=== PATIENT | female | born 1990 | race Caucasian/White ===

== ENCOUNTER 2018-03-26 21:53 | Observation (INO) | payer OTHER ==
[2018-03-26] MEDS ORDERED: Ketorolac INJ* 30 MG/ML 1 ML VIAL IV PUSH ONE (22:35)
[2018-03-26 22:39] LABS: ABS Basophils 0.1 10^3/ul (0-0.2); ABS Eosinophils 0.1 10^3/ul (0-0.6); ABS Lymphocytes 2.6 10^3/ul (1.0-4.8); ABS Monocytes 0.8 10^3/ul (0-0.8); ABS Neutrophils 7.6 10^3/ul (1.5-7.7); ABS Nucleated RBC 0 10^3/ul; Eosinophil % 0.6 % (0-6); Hematocrit 39 % (35-47); Lymphocyte % 23.6 % (25-47); Mean Corpuscular HGB Conc 34 g/dl (31-36); Mean Corpuscular Hemoglobin 29 pg (27-31); Mean Corpuscular Volume 85 fL (80-97); Mean Platelet Volume 7.7 um3 (7.4-10.4); Nucleated Red Blood Cells % 0; Platelet Count 256 10^3/ul (150-450); Red Blood Count 4.51 10^6/ul (4.0-5.4); Red Cell Distribution Width 13 % (10.5-15); White Blood Count 11.2 10^3/ul (3.5-10.8)
[2018-03-26 23:05] LABS: EGFR Non-African American 98.7 (>60)
[2018-03-26 23:18] LABS: Urine Appearance Cloudy; Urine Blood 2+ (Negative); Urine Color Yellow; Urine Ketones 1+ (Negative); Urine Protein Negative (Negative); Urine Specific Gravity 1.027 (1.010-1.030); Urine Urobilinogen Negative (Negative)
[2018-03-27] MEDS ORDERED: Iohexol 300* (CONTRAST) 10 ML SDV IV ONE (01:21)
[2018-03-27] MEDS ORDERED: Piperacillin/Tazobac ADVAN(*) 3.375 GM in NS 0.9% 100 ML* 100 ML IVPB ONE (02:23)
[2018-03-27] MEDS ORDERED: Metoclopramide IV* 5 MG/ML 2 ML VIAL IV PRN (03:45)
[2018-03-27] MEDS ORDERED: NS 0.9% 1000 ML* 1,000 ML IV SCH (03:45)
[2018-03-27] MEDS ORDERED: Morphine VIAL* 4 MG/ML VIAL (1 ml vial) IV PRN (03:45)
--- NOTE | 2018-03-27 05:00 | ED ---
Earnest Beltran Nilda, scribed for Myron Newell MD on 03/26/18 at 2238 . Abdominal Pain/Female - HPI Summary HPI Summary: This patient is a 27 year old F presenting to [facility] accompanied by friends with a chief complaint of constant RLQ cramping for the past 2 days that originated as diffuse abd pain a week ago. The patient rates the pain 1/10 in severity. Symptoms aggravated by food and alleviated by nothing. Pt states she was able to eat lunch but was unable to eat dinner due to pain. Patient denies fever, nausea, pelvic pain, dysuria, abnormal vaginal discharge, diarrhea, constipation , and back pain. No PSHx abd. NKDA. LNMP 2 weeks ago. Pt states no chance . - History of Current Complaint Chief Complaint: EDAbdPain Stated Complaint: ABD PAIN Time Seen by Provider: 03/26/18 22:21 Hx Obtained From: Patient Onset/Duration: Sudden Onset, Lasting Days, Still Present Timing: Constant Severity Currently: Mild Pain Intensity: 1 Pain Scale Used: 0-10 Numeric Location: Discrete At: RLQ Radiates: No Character: Cramping Aggravating Factor(s): Food Alleviating Factor(s): Nothing Associated Signs and Symptoms: Positive: Other: - loss of appetite; Patient denies fever, nausea, pelvic pain, dysuria, abnormal vaginal discharge, diarrhea , constipation, and back pain Allergies/Adverse Reactions: Allergies Allergy/AdvReac Type Severity Reaction Status Date / Time No Known Allergies Allergy Verified 03/26/18 22:02 Home Medications: Home Medications Norethindrone (NF) [Ana (NF)] 0.35 mg PO DAILY 03/26/18 [History Confirmed 03/26/18] PMH/Surg Hx/FS Hx/Imm Hx Sensory History: Denies: Hx Legally Blind EENT History: Denies: Hx Deafness Infectious Disease History: No Infectious Disease History: Denies: Traveled Outside the [place] in Last 30 Days - Family History Known Family History: Negative: Cardiac Disease, Hypertension, Diabetes Review of Systems Negative: Fever Positive: Abdominal Pain, Other - loss of appetite; negative constipation. Negative: Diarrhea, Nausea Negative: dysuria, discharge, pain Positive: Other - negative back pain All Other Systems Reviewed And Are Negative: Yes Physical Exam - Summary Physical Exam Summary: Appearance: Well appearing, no pain distress Skin: warm, dry, reflects adequate perfusion Head/face: normal Eyes: EOMI, OLGA ENT: normal Neck: supple, non-tender Respiratory: CTA, breath sounds present Cardiovascular: RRR, pulses symmetrical Abdomen: soft, right adnexal tenderness, right pelvic pain, No Mcburney point tenderness, no rebound, no guarding Bowel Sounds: present Musculoskeletal: normal, strength/ROM intact Neuro: normal, sensory motor intact, A&Ox3 Triage Information Reviewed: Yes Vital Signs On Initial Exam: Initial Vitals Temp Pulse Resp BP Pulse Ox 98.2 F 92 16 115/80 98 03/26/18 22:00 03/26/18 22:00 03/26/18 22:00 03/26/18 22:00 03/26/18 22:00 Vital Signs Reviewed: Yes Diagnostics - Vital Signs Vital Signs Temp Pulse Resp BP Pulse Ox 03/26/18 22:00 98.2 F 92 16 115/80 98 - Laboratory Lab Results: Lab Results 03/26/18 03/26/18 03/26/18 Range/Units 22:29 22:29 22:29 WBC 11.2 H (3.5-10.8) 10^3/ul RBC 4.51 (4.0-5.4) 10^6/ul Hgb 13.0 (12.0-16.0) g/dl Hct 39 (35-47) % MCV 85 (80-97) fL MCH 29 (27-31) pg MCHC 34 (31-36) g/dl RDW 13 (10.5-15) % Plt Count 256 (150-450) 10^3/ul MPV 7.7 (7.4-10.4) um3 Neut % (Auto) 67.8 (38-83) % Lymph % (Auto) 23.6 L (25-47) % [place] % (Auto) 7.4 H (0-7) % Eos % (Auto) 0.6 (0-6) % Baso % (Auto) 0.6 (0-2) % Absolute Neuts (auto) 7.6 (1.5-7.7) 10^3/ul Absolute Lymphs (auto) 2.6 (1.0-4.8) 10^3/ul Absolute Monos (auto) 0.8 (0-0.8) 10^3/ul Absolute Eos (auto) 0.1 (0-0.6) 10^3/ul Absolute Basos (auto) 0.1 (0-0.2) 10^3/ul Absolute Nucleated RBC 0 10^3/ul Nucleated RBC % 0 Sodium 138 L (139-145) mmol/L Potassium 4.0 (3.5-5.0) mmol/L Chloride 102 (101-111) mmol/L Carbon Dioxide 27 (22-32) mmol/L Anion Gap 9 (2-11) mmol/L BUN 10 (6-24) mg/dL Creatinine 0.72 (0.51-0.95) mg/dL Est GFR ( Amer) 126.9 (>60) Est GFR (Non-Af Amer) 98.7 (>60) BUN/Creatinine Ratio 13.9 (8-20) Glucose 92 (70-100) mg/dL Lactic Acid 0.7 (0.5-2.0) mmol/L Calcium 9.7 (8.6-10.3) mg/dL Total Bilirubin 0.40 (0.2-1.0) mg/dL AST 14 (13-39) U/L ALT 8 (7-52) U/L Alkaline Phosphatase 37 (34-104) U/L C-Reactive Protein 32.19 H (< 5.00) mg/L Total Protein 8.1 (6.4-8.9) g/dL Albumin 4.5 (3.2-5.2) g/dL Globulin 3.6 (2-4) g/dL Albumin/Globulin Ratio 1.3 (1-3) Lipase 10 L (11.0-82.0) U/L Urine Color Urine Appearance Urine pH (5-9) Ur Specific [place] (1.010-1.030) Urine Protein (Negative) Urine Ketones (Negative) Urine Blood (Negative) Urine Nitrate (Negative) Urine Bilirubin (Negative) Urine Urobilinogen (Negative) Ur Leukocyte Esterase (Negative) Urine WBC (Auto) (Absent) Urine RBC (Auto) (Absent) Ur Squamous Epith Cells (Absent) Urine Bacteria (Absent) Hyaline Casts (Absent) Urine Glucose (Negative) 03/26/18 03/27/18 Range/Units 22:55 03:25 WBC (3.5-10.8) 10^3/ul RBC (4.0-5.4) 10^6/ul Hgb (12.0-16.0) g/dl Hct (35-47) % MCV (80-97) fL MCH (27-31) pg MCHC (31-36) g/dl RDW (10.5-15) % Plt Count (150-450) 10^3/ul MPV (7.4-10.4) um3 Neut % (Auto) (38-83) % Lymph % (Auto) (25-47) % [place] % (Auto) (0-7) % Eos % (Auto) (0-6) % Baso % (Auto) (0-2) % Absolute Neuts (auto) (1.5-7.7) 10^3/ul Absolute Lymphs (auto) (1.0-4.8) 10^3/ul Absolute Monos (auto) (0-0.8) 10^3/ul Absolute Eos (auto) (0-0.6) 10^3/ul Absolute Basos (auto) (0-0.2) 10^3/ul Absolute Nucleated RBC 10^3/ul Nucleated RBC % Sodium (139-145) mmol/L Potassium (3.5-5.0) mmol/L Chloride (101-111) mmol/L Carbon Dioxide (22-32) mmol/L Anion Gap (2-11) mmol/L BUN (6-24) mg/dL Creatinine (0.51-0.95) mg/dL Est GFR ( Amer) (>60) Est GFR (Non-Af Amer) (>60) BUN/Creatinine Ratio (8-20) Glucose (70-100) mg/dL Lactic Acid 0.5 (0.5-2.0) mmol/L Calcium (8.6-10.3) mg/dL Total Bilirubin (0.2-1.0) mg/dL AST (13-39) U/L ALT (7-52) U/L Alkaline Phosphatase (34-104) U/L C-Reactive Protein (< 5.00) mg/L Total Protein (6.4-8.9) g/dL Albumin (3.2-5.2) g/dL Globulin (2-4) g/dL Albumin/Globulin Ratio (1-3) Lipase (11.0-82.0) U/L Urine Color Yellow Urine Appearance Cloudy Urine pH 6.0 (5-9) Ur Specific [place] 1.027 (1.010-1.030) Urine Protein Negative (Negative) Urine Ketones 1+ A (Negative) Urine Blood 2+ A (Negative) Urine Nitrate Negative (Negative) Urine Bilirubin Negative (Negative) Urine Urobilinogen Negative (Negative) Ur Leukocyte Esterase Negative (Negative) Urine WBC (Auto) Trace(0-5/hpf) (Absent) Urine RBC (Auto) 1+(3-5/hpf) A (Absent) Ur Squamous Epith Cells Present A (Absent) Urine Bacteria Absent (Absent) Hyaline Casts Present A (Absent) Urine Glucose Negative (Negative) Result Diagrams: 03/26/18 22:29 03/26/18 22:29 Lab Statement: Any lab studies that have been ordered have been reviewed, and results considered in the medical decision making process. - CT Abd/Pel CT Interpretation Completed By: Radiologist - CT Abd/Pel, per radiologist, reveals: Positive for acute appendicitis. The appendix is thickened up to 1 cm. There is appendiceal wall hyperemia, intraluminal fluid and slight periappendiceal inflammation. There is also associated cecal wall thickening. No free air. No bowel obstruction. No abscess. Normal liver. Normal spleen. Normal pancreas. Normal adrenal glands. Normal gallbladder. Normal kidneys urinary tract and urinary bladder. Trace fluid in the pelvis. Osseous structures are intact. Dr. Newell has reviewed this report. - Additional Comments Diagnostic Additional Comments: US abd, per radiologist, reveals blind-ending tubular structure in the right lower quadrant with individual wall thickness up to 3.4 mm and total thickness up to 8 mm. Findings are consistent with appendicitis. Findings consistent with acute appendicitis. Dr. Newell has reviewed this radiology report. Re-Evaluation - Re-Evaluation First Eval Re-Evaluation Time: 23:14 Change: Improved Comment: Pt states she had appendicitis while she was in [place] and was treated with abx. Abdominal Pain Fem Course/Dx - Course Course Of Treatment: Patient with ultrasound done shortly after arrival that demonstrated what was concerning for appendicitis. Radiologist agreed. Patient does have a history of appendicitis treated with oral antibiotics previously while in [place]. The surgeon wanted to confirm with formal CT scan with contrast. CT scan demonstrated findings consistent with appendicitis. Her pain has improved. Patient was considering leaving and having surgery in [place] on Saturday but was discouraged from this. IV antibiotics were given. Her pain was much better. Surgery plans for OR in the morning. - Diagnoses Differential Diagnosis: Positive: Appendicitis, Ovarian Cyst, , Urinary Tract Infection Provider Diagnoses: RLQ abdominal pain, Appendicitis - Provider Notifications Discussed Care Of Patient With: Portillo Drummond - Surgery Time Discussed With Above Provider: 23:24 Instructed by Provider To: Other - recommends CT scan with contrast Discharge - Sign-Out/Discharge Documenting (check all that apply): Discharge/Admit/Transfer - Discharge Plan Condition: Good Disposition: ADMITTED TO [facility] - Billing Disposition and Condition Condition: GOOD [place]position[place] [facility] The documentation as recorded by the Earnest esquivel Nilda accurately reflects the service I personally performed and the decisions made by Reece gonzalez Kirk, MD.
[2018-03-27] MEDS: ZOSYN 3.375 GM Q8H per EXTENDED INFUSION IVPB SCH ×4 (06:28→14:24)
--- NOTE | 2018-03-27 07:41 | RAD ---
INDICATION: Right-sided pelvic pain COMPARISON: None TECHNIQUE: Real time ultrasound images of the right lower quadrant were acquired in dickerson scale and Doppler color flow. FINDINGS: In the right lower quadrant there is a blind-ending noncompressible structure measuring 8 mm in diameter and exhibiting a wall thickness of 3 mm. There is no significant periappendiceal fluid collection. There is no lymphadenopathy. IMPRESSION: The fluid-filled blind-ending tubular structure identified in the right lower quadrant could be an early appendicitis in the correct clinical setting.
--- NOTE | 2018-03-27 07:45 | RAD ---
CLINICAL HISTORY: Right lower quadrant pain COMPARISON: Same day ultrasound of the right lower quadrant TECHNIQUE: Contrast enhanced CT examination of the abdomen and pelvis from the lung bases through the initial tuberosities. The patient received 76 mL Omnipaque 300 intravenously prior to imaging.The patient received oral contrast as well prior to imaging. FINDINGS: VISUALIZED LUNG BASES: The visualized lung bases are grossly clear. There is no pleural effusion. ABDOMEN AND PELVIS: The liver, spleen, pancreas and adrenal glands are grossly normal in appearance. The gallbladder is normal. The kidneys are normal in appearance without focal mass, calcification or signs of hydronephrosis. Neural contrast has progressed as far as the rectum. The small bowel is not dilated. Depicted best in the coronal plane, the appendix is fluid-filled measuring 1 cm in diameter. There is mild periappendiceal inflammatory change. There is a small amount of wall thickening of the adjacent cecum. More distally the colon is normal in appearance. Mesenteric lymph nodes at the right lower quadrant are mildly enlarged measuring 11 mm in short axis diameter (coronal image 26). The pelvic viscera is normal in appearance. The abdominal aorta and iliac arteries are normal in course and diameter. There are no sinister bone lesions. IMPRESSION: In the correct clinical setting CT findings could be compatible with early appendicitis. Mesenteric adenitis is considered less likely.
--- NOTE | 2018-03-27 12:10 | HP ---
AMENDED REPORT NOW INCLUDES COSIGNER DESIGNATION - ESIGNED BEFORE ADJUSTMENT DATE OF ADMISSION: 03/27/2018. ATTENDING SURGEON: Dr. Portillo Drummond * (JUSTICE Mccallum dictating). CHIEF COMPLAINT: Abdominal pain. HISTORY OF PRESENT ILLNESS: This is a 27-year-old generally healthy female. She presents with a one week history of low grade abdominal discomfort that was generalized and nonlocalized until approximately two days ago when it became localized to the right lower quadrant. She has had no associated fever, chills , nausea, vomiting, constipation, or diarrhea. She had a normal bowel movement yesterday. She states that this morning the pain actually feels somewhat better. She has not required any analgesics overnight. She was treated for acute appendicitis in [place] approximately six years ago with antibiotics with resolution. She has no symptoms (hematuria, dysuria, or increased frequency) . Her last menstrual period was two weeks ago. I did not see an HCG, but one was added on to her lab work from last night. She was seen this morning and examined by Dr. Drummond and myself. PAST MEDICAL HISTORY: Unremarkable for any active or chronic medical problems. PAST SURGICAL HISTORY: No prior surgeries. CURRENT MEDICATIONS: Norethindrone. DRUG ALLERGIES: None known. FAMILY HISTORY: Negative. 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 REVIEW OF SYSTEMS: General: As per the HPI, no other recent acute illnesses. Cardiovascular: No chest pain, palpitations, or history of hypertension. Respiratory: No shortness of breath or cough. GI: As above per HPI. : No additions to above. FINISHING INSPECTOR: No vaginal discharge. All other systems are reviewed and are negative. PHYSICAL EXAMINATION GENERAL: Well-nourished, well-developed and in no acute distress. VITAL SIGNS: Temperature 98.3, blood pressure 96/55, pulse 50, respirations 14 , room air saturation 97. SKIN: Warm and dry. No suspicious rashes or lesions. HEENT: Unremarkable. LUNGS: Clear to auscultation. HEART: Regular rate and rhythm. Mildly tachycardic. ABDOMEN: Soft with well-localized tenderness in the right lower quadrant without guarding, rebound, or rigidity. BACK: No spinous process or CVA tenderness. EXTREMITIES: No edema. GENITALIA: Not done. RECTAL: Not done. LABORATORY DATA OF NOTE: White blood cell count 11,200 with slight left shift , hemoglobin 13; lactic acid was normal, CRP was elevated at 32, liver function test and lipase were normal. Urinalysis was remarkable for 1+ ketones and 2+ blood. CT scan with contrast does show an enlarged edematous structure consistent with an inflamed appendix. Scan was reviewed with Dr. Drummond. IMPRESSION: Acute appendicitis. PLAN: Laparoscopic appendectomy to happen some time today. The indications, risks, benefits, and alternatives, as well as the procedure details were discussed with the patient and she would like to proceed as scheduled with laparoscopic appendectomy. JUSTICE MCCALLUM [id number]/[facility] #: [id number] MTDD
[2018-03-27] MEDS ORDERED: Bupivacaine 0.25% SDV* 30 ML ONE (14:46)
[2018-03-27] MEDS ORDERED: fentaNYL* 50 MCG/ML 2 ML VIAL (100 MCG VIAL) ONE ×2 (14:55→16:44)
[2018-03-27] MEDS ORDERED: Midazolam* 1 MG/ML 2 ML VIAL (2 MG) ONE (14:55)
[2018-03-27] MEDS ORDERED: Ketorolac INJ* 30 MG/ML 1 ML VIAL ONE (14:56)
[2018-03-27] MEDS ORDERED: Dexamethasone IV* 4 MG/ML 1 ML (4 MG) ONE (14:56)
[2018-03-27] MEDS ORDERED: Succinylcholine* 20 MG/ML 10 ML VIAL ONE (14:56)
[2018-03-27] MEDS ORDERED: Propofol* 10 MG/ML 20 ML BTL IV PUSH ONE (14:56)
[2018-03-27] MEDS ORDERED: Metoclopramide IV* 5 MG/ML 2 ML VIAL ONE (14:56)
[2018-03-27] MEDS ORDERED: Rocuronium* 10 MG/ML VIAL ONE (15:18)
[2018-03-27] MEDS ORDERED: Neostigmine Methylsulfate* 1 MG/ML 10 ML VIAL (1 mg/ml) ONE (15:30)
[2018-03-27] MEDS ORDERED: Glycopyrrolate IV* 0.2 MG/ML 1 ML VIAL ONE (15:30)
[2018-03-27] MEDS ORDERED: Lidocaine 2% PF * 5 ML VIAL ONE (15:49)
[2018-03-27] MEDS ORDERED: Naloxone* 0.4 MG/ML 1 ML VIAL IV PRN (16:24)
[2018-03-27] MEDS ORDERED: Ondansetron ODT TAB* 4 MG PO PRN (16:24)
[2018-03-27] MEDS ORDERED: oxyCODONE/Acetamin 5/325 MG* TAB ONE (16:44)
[2018-03-27] MEDS: fentaNYL* 50 MCG/ML 2 ML VIAL (100 MCG VIAL) IV PRN ×2 (16:46→17:15)
[2018-03-27 18:21] VITALS: BP 110/63
--- NOTE | 2018-03-28 09:02 | OP ---
CC: [facility] * DATE OF OPERATION: 03/27/18 - ROOM #342 DATE OF : 89 SURGEON: Monty Durham MD RADIOLOGY SERVICES MANAGER: None. ANESTHESIOLOGIST: Juan Davenport MD ANESTHESIA: General anesthetic, local infiltration. PRE-OP DIAGNOSIS: Appendicitis. POST-OP DIAGNOSIS: Appendicitis. OPERATIVE PROCEDURE: Laparoscopic appendectomy. DESCRIPTION OF PROCEDURE: The patient was supine on the operating room table. After adequate general anesthetic, compression stockings, Belinda Hugger warmer, and intravenous antibiotics, the abdomen was prepped with antiseptic, draped in a sterile fashion. Local infiltrative anesthesia was administered and a small umbilical incision was created. Blunt port cannula was placed. Insufflation was carried out with carbon dioxide. Inspection revealed no evidence of underlying injury. Additional cannulae, 5 mm suprapubic and left lower quadrant, were placed through small stab wounds under direct vision. The terminal ileum was bound down into the right pelvis. It appeared to be adhesions. I would suspect due to the previously antibiotic-treated appendicitis. When I peeled up the terminal ileum, the appendix was tucked in behind there and it was clearly actively inflamed. It was dilated and hyperemic and the appendix was tented upward. The mesoappendix was divided using a beltran load of an EndoGIA stapler through a small rent that was created with the [place] dissector. The base of the appendix was divided with a ruelas load of the EndoGIA stapler; however , there was a fair amount of tension on this and I was not happy with the appearance of the staple line. It appeared just a little more ragged than usual. In addition, upon manipulating the staple line, there was a little bit of purulence forthcoming from within the staple line. Therefore, I decided to take it deeper into the cecum and 2 firings of the EndoGIA purple load were used to take this entire area out, I resected the previous staple line back to more normal-appearing cecum. This created a normal-appearing staple line and everything seemed to be closed well. Both specimens were placed in retrieval bags and brought up through the umbilical site. The operative field was irrigated with warm saline solution. Free fluid was suctioned out. Hemostasis was again confirmed. The cannulae were removed. Pneumoperitoneum was allowed to escape. Umbilical fascia was closed with 0 Vicryl, and skin with 5-0 Vicryl in all cases followed by Steri-Strips. She was awakened, extubated, and brought to recovery room in good condition. There were no complications. No drains. Pathologic specimen was appendix and a portion of cecum. Sponge and instrument counts correct. Estimated blood loss was less than 20 mL. [id number]/[facility] #: [id number]
--- NOTE | 2018-04-14 15:00 | DS ---
AMENDED REPORT NOW INCLUDES COSIGNER DESIGNATION - ESIGNED BEFORE ADJUSTMENTS DISCHARGE SUMMARY: DATE OF ADMISSION: 03/27/18 DATE OF DISCHARGE: 03/27/18 ATTENDING SURGEON: Monty Durham MD * (DICTATED BY JOSEPH MONTELONGO NP) HOSPITAL COURSE: Please refer to admission history and physical for admission details. The patient is a 27-year-old female with a history of acute appendicitis in [place] 6 years ago treated with antibiotics; she presented to the [facility] Emergency Room on 03/26/18 with 2 days of persistent right lower quadrant abdominal pain. She was afebrile, her white blood cell count was 11.2. A CAT scan of the abdomen and pelvis was consistent with early appendicitis. She was taken to the operating room by Dr. Durham on 03/27/18 and underwent laparoscopic appendectomy; the operative note indicated that there were no complications; the pathology reviewed acute appendicitis and periappendicitis. The patient was discharged from the PACU on 03/27/18 in stable condition. She was given postoperative discharge instructions and the plan for followup since she would be traveling home to [facility] would be followup appointment in [facility]. IMPRESSION: Status post laparoscopic appendectomy. PLAN: Discharge from PACU on the same day of surgery in stable condition. JOSEPH MONTELONGO NP [id number]/[facility] #: [id number] MTDLincoln
== END 2018-03-27 18:22 | disposition home or self-care (01) ==
LOC: ED 21:53 → INTOOBSV 03-27 03:45 → SSU 03-27 03:45
PROVIDERS: ADMIT Surgery; ATTEND Surgery
PROC: 0DTJ4ZZ Resection of Appendix, Percutaneous Endoscopic Approach (ICD-10-PCS; principal; 2018-03-27 14:45)
DX: K37 Unspecified appendicitis (principal); R10.31 Right lower quadrant pain
CPT/HCPCS: 36415; 74177; 76705; 80053; 81003; 81015; 83605; 83690; 84702; 85025; 86140; 87086; 87491; 87591; 88304; 96365; 96375; 99283; A9270-GY; C1776; G0378; J0330; J1100; J1885; J2250; J2543; J2704; J2710; J2765; J3010; Q9967